=== PATIENT | male | born 1935 | race Caucasian/White ===

== ENCOUNTER 2022-04-17 16:12 | Inpatient (IN) | payer OTHER ==
[2022-04-17] VITALS (8 sets, daily range): BP systolic 137–221; BP diastolic 62–98
[~2022-04-17] VITALS: Ht 170.1 cm; Wt 72.8 kg
[~2022-04-17 16:12] MED LIST: NORVASC5 MG PO
[2022-04-17 17:01] LABS: BASO % 0.5 % (0.0-1.0); EOS # 0.1 10*3/uL (0.0-0.4); EOS % 2.1 % (1.0-4.0); HEMATOCRIT 37.6 % (42.0-52.0); LYMPH # 1.2 10*3/uL (1.3-4.4); LYMPH % 21.1 % (27.0-41.0); MEAN CELL VOLUME 102.7 fl (80.0-94.0); MEAN CORPUSCULAR HGB 33.3 pg (27.0-31.0); MEAN CORPUSCULAR HGB CONC 32.4 g/dl (33.0-37.0); MEAN PLATELET VOLUME 11.3 fl (9.6-12.3); MONO # 0.6 10*3/uL (0.1-1.0); MONO % 9.8 % (3.0-9.0); NEUT # 3.8 10*3/uL (2.3-7.9); NEUT % 65.6 % (47.0-73.0); PLATELET COUNT AUTOMATED 141 10*3/uL (130-400); RED BLOOD COUNT 3.66 10*6/uL (4.50-5.90); RED CELL DISTRI WIDTH 11.9 % (0-14.5); WHITE BLOOD COUNT 5.8 10*3/uL (4.8-10.8)
[2022-04-17 17:16] LABS: ACT PARTIAL THROMBO TIME 40.8 SECONDS (20.0-32.1)
[2022-04-17 17:17] LABS: CREATININE 1.58 mg/dL (0.70-1.30); POTASSIUM 4.3 mmol/L (3.5-5.1); TOTAL PROTEIN 6.5 gm/dL (6.4-8.2)
[2022-04-17] MEDS ORDERED: SERTRALINE HYDR25 MG PO (22:45)
[2022-04-17] MEDS ORDERED: ELIQUIS5 M1 PO (22:45)
[2022-04-17] MEDS ORDERED: TRADJENTA5 M1 PO (22:45)
[2022-04-17] MEDS ORDERED: FINASTERIDE5 M1 PO (22:46)
[2022-04-17] MEDS ORDERED: CLOPIDOGREL75 MG PO (22:46)
[2022-04-17] MEDS ORDERED: LEADER NATUR1000 MCG PO (22:46)
[2022-04-17] MEDS ORDERED: PRAVASTATIN SOD40 MG PO (22:47)
[2022-04-17] MEDS ORDERED: LISINOPRIL40 MG PO (22:47)
[2022-04-17] MEDS ORDERED: METOPROLOL TART50 M1 PO (22:47)
[2022-04-18] VITALS: BP 122/55; BP 158/72
[2022-04-18 06:12] LABS: CREATININE 1.71 mg/dL (0.70-1.30); FREE T4 0.79 ng/dl (0.76-1.46); POTASSIUM 3.9 mmol/L (3.5-5.1)
[2022-04-18 06:16] LABS: THYROID STIM HORMONE (HS) 2.04 uIU/ml (0.358-4.75)
[2022-04-18 06:20] LABS: BASO % 0.5 % (0.0-1.0); EOS # 0.1 10*3/uL (0.0-0.4); EOS % 2.1 % (1.0-4.0); LYMPH # 1.2 10*3/uL (1.3-4.4); LYMPH % 20.4 % (27.0-41.0); MEAN CELL VOLUME 101.1 fl (80.0-94.0); MEAN CORPUSCULAR HGB CONC 33.6 g/dl (33.0-37.0); MEAN PLATELET VOLUME 11.4 fl (9.6-12.3); MONO # 0.6 10*3/uL (0.1-1.0); MONO % 10.6 % (3.0-9.0); NEUT # 3.7 10*3/uL (2.3-7.9); PLATELET COUNT AUTOMATED 143 10*3/uL (130-400); RED BLOOD COUNT 3.56 10*6/uL (4.50-5.90); WHITE BLOOD COUNT 5.6 10*3/uL (4.8-10.8)
[2022-04-18 08:00] VITALS: BP 156/88
[2022-04-18 12:00] VITALS: BP 176/78
[2022-04-18 14:31] VITALS: BP 126/56
[2022-04-18 16:00] VITALS: BP 136/58
[2022-04-18 20:00] VITALS: BP 142/73
[2022-04-19] VITALS: BP 155/89; BP 160/82
[2022-04-19 04:00] VITALS: BP 138/70
[2022-04-19 06:14] LABS: CREATININE 1.7 mg/dL (0.70-1.30); POTASSIUM 4.2 mmol/L (3.5-5.1)
[2022-04-19 06:23] LABS: BASO # 0.1 10*3/uL (0.0-0.1); BASO % 0.7 % (0.0-1.0); EOS # 0.1 10*3/uL (0.0-0.4); EOS % 1.4 % (1.0-4.0); HEMATOCRIT 38.1 % (42.0-52.0); LYMPH # 1.4 10*3/uL (1.3-4.4); LYMPH % 19.1 % (27.0-41.0); MEAN CELL VOLUME 101.3 fl (80.0-94.0); MEAN CORPUSCULAR HGB 33.8 pg (27.0-31.0); MEAN CORPUSCULAR HGB CONC 33.3 g/dl (33.0-37.0); MEAN PLATELET VOLUME 11.1 fl (9.6-12.3); MONO # 0.7 10*3/uL (0.1-1.0); MONO % 9.6 % (3.0-9.0); NEUT % 68.6 % (47.0-73.0); PLATELET COUNT AUTOMATED 161 10*3/uL (130-400); RED BLOOD COUNT 3.76 10*6/uL (4.50-5.90); WHITE BLOOD COUNT 7.2 10*3/uL (4.8-10.8)
[2022-04-19 08:00] VITALS: BP 160/74
[2022-04-19] MEDS ORDERED: ELIQUIS5 M1 PO (10:57)
[2022-04-19] MEDS ORDERED: AMLODIPINE BESYL5 MG PO (10:57)
== END 2022-04-19 11:55 | disposition home or self-care (01) | DRG 304 ==
LOC: ED 16:12 → 5E 18:45 → EDHOLD 18:45 → 5E 20:35
PROVIDERS: Emergency Medicine; Internal Medicine; ADMIT Student in an Organized Health Care Education/Training Program; ATTEND Student in an Organized Health Care Education/Training Program
DX: I16.0 Hypertensive urgency (principal); N17.0 Acute kidney failure with tubular necrosis; E78.5 Hyperlipidemia, unspecified; Z96.652 Presence of left artificial knee joint; I10 Essential (primary) hypertension; E11.69 Type 2 diabetes mellitus with other specified complication; D53.9 Nutritional anemia, unspecified; Z88.0 Allergy status to penicillin